=== PATIENT | female | born 1990 | race Caucasian/White ===

== ENCOUNTER 2019-01-25 15:52 | Inpatient (IN) | payer OTHER ==
[2019-01-25 16:32] VITALS: BMI 19.8
--- NOTE | 2019-01-25 17:15 | HP ---
CIWA Score Nausea/Vomitin Muscle Tremors: 2 Anxiety: 2 Agitation: 2 Paroxysmal Sweats: 1-Minimal Palms Moist Orientation: 0-Oriented Tacttile Disturbances: 1-Very Mild Itch/Numbness Auditory Disturbances: 1-Very Mild Visual Disturbances: 0-None Headache: 2-Mild CIWA-Ar Total Score: 13 - Admission Criteria [facility] Guidelines: Admission for Medically Managed Detox: Requires at least one of the followin. CIWA greater than 12 2. Seizures within the past 24 hours 3. Delirium tremens within the past 24 hours 4. Hallucinations within the past 24 hours 5. Acute intervention needed for co occurring medical disorder 6. Acute intervention needed for co occurring psychiatric disorder 7. Severe withdrawal that cannot be handled at a lower level of care (continued vomiting, continued diarrhea, abnormal vital signs) requiring intravenous medication and/or fluids 8. Admission ROS [facility] - HPI Chief Complaint: i need help to stop drinking alcohol Allergies/Adverse Reactions: Allergies Allergy/AdvReac Type Severity Reaction Status Date / Time Penicillins AdvReac Severe Rash Verified 01/25/19 16:12 History of Present Illness: this 28 years old female with alcohol dependence,seeking detox,withdrawal symptom, multiple admissions in detox,last detox albny 01/08 seizure last 11/08 syncope frequent fall longest period of sobriety 3 months anxiety,depression,insomnia Exam Limitations: No Limitations - Ebola screening Have you traveled outside of the country in the last 21 days: No (N) Have you had contact with anyone from an Ebola affected area: No Do you have a fever: No - Review of Systems Constitutional: Loss of Appetite, Night Sweats, Unintentional Wgt. Loss, Unexplained wgt Loss EENT: reports: Nose Congestion Respiratory: reports: No Symptoms reported Cardiac: reports: Palpitations GI: reports: Nausea, Poor Appetite, Abdominal cramping : reports: No Symptoms Reported Musculoskeletal: reports: Back Pain, Muscle Pain Integumentary: reports: Dryness Neuro: reports: Headache, Tremors Endocrine: reports: No Symptoms Reported Hematology: reports: No Symptoms Reported Psychiatric: reports: No Sypmtoms Reported, Judgement Intact, Mood/Affect Appropiate, Orientated x3, Depressed Other Systems: Reviewed and Negative Patient History - Patient Medical History Hx Anemia: No Hx Asthma: No Hx Chronic Obstructive Pulmonary Disease (COPD): No Hx Cancer: No Hx Cardiac Disorders: No Hx Congestive Heart Failure: No Hx Hypertension: No Hx Hypercholesterolemia: No Hx Pacemaker: No HX Cerebrovascular Accident: No Hx Seizures: Yes (on medication,last 11/08) Hx Dementia: No Hx Diabetes: No Hx Gastrointestinal Disorders: No Hx Liver Disease: No Hx Genitourinary Disorders: No Hx Sexually Transmitted Disorders: No Hx Renal Disease (ESRD): No Hx Thyroid Disease: No Hx Human Immunodeficiency Virus (HIV): No (last 05/09 negative) Hx Hepatitis C: No Hx Depression: Yes Hx Suicide Attempt: No Hx Bipolar Disorder: No Hx Schizophrenia: No Other Medical History: no suicidal,no homicidal - Patient Surgical History Other Surgical History: wisdom teeth 2014 - PPD History Documented Results: Negative w/o proof Implanted On Prior [facility] Admission?: No PPD to be Administered?: No - Reproductive History Patient is a Female of Child Bearing Age (11 -55 yrs old): Yes Last Menstrual Period: 01/24/19 Patient : No - Smoking Cessation Smoking history: Never smoked - Substance & Tx. History Hx Alcohol Use: Yes Hx Substance Use: No Substance Use Type: Alcohol Hx Substance Use Treatment: Yes ([facility] in 01/08) - Substances abused Alcohol Substance route: Oral Frequency: Daily Amount used: 20 shots a day, 1.75 shots of vodka a day, Age of first use: 20 Date of last use: 01/25/19 Family Disease History - Family Disease History Family History: Denies Admission Physical Exam BHS - Vital Signs Vital Signs: Vital Signs - 24 hr 01/25/19 16:09 Temperature 97.8 F Pulse Rate 97 H Respiratory 16 Rate Blood Pressure 109/68 - Physical General Appearance: Yes: Moderate Distress, Tremorous, Irritable, Sweating, Anxious HEENTM: Yes: Normal ENT Inspection, TELMA, Pharynx Normal Respiratory: Yes: Lungs Clear, Normal Breath Sounds, No Respiratory Distress Neck: Yes: Within Normal Limits, Supple, Trachea in good position Breast: Yes: Breast Exam Deferred Cardiology: Yes: Within Normal Limits, Regular Rhythm, Regular Rate, S1, S2 Abdominal: Yes: Within Normal Limits, Normal Bowel Sounds, Non Tender, Soft Genitourinary: Yes: Within Normal Limits Back: Yes: Muscle Spasm Musculoskeletal: Yes: Back pain, Muscle Pain Extremities: Yes: Within Normal Limits, Normal Range of Motion, Tremors Neurological: Yes: infrastructure technician II-XII NML intact, Fully Oriented, Alert, Motor Strength 5/5 Integumentary: Yes: Dry Lymphatic: Yes: Within Normal Limits - Diagnostic (1) Alcohol dependence with uncomplicated withdrawal Current Visit: Yes Status: Acute (2) Alcohol dependence with uncomplicated intoxication Current Visit: Yes Status: Acute (3) Syncope Current Visit: Yes Status: Acute (4) Seizure Current Visit: Yes Status: Acute (5) Anxiety and depression Current Visit: Yes Status: Acute (6) Insomnia Current Visit: Yes Status: Acute Cleared for Admission [facility] - Detox or Rehab [facility] Level of Care: Medically Managed Detox Regimen/Protocol: Valium Breathalyzer - Breathalyzer Breathalyzer: 0.234 Urine Drug Screen - Test Device Lot number: [id number] Expiration date: 11/19/20 - Control Is test valid?: Yes - Results Drug screen NEGATIVE: No Urine drug screen results: BZO-Benzodiazepines Inpatient Rehab Admission - Rehab Decision to Admit Inpatient rehab admission?: No
[2019-01-25] MEDS ORDERED: MAGNESIUM CITRATE 300 ML BOTTLE PO PRN (17:25)
[2019-01-25] MEDS ORDERED: IBUPROFEN 400 MG TABLET (FP) PO PRN (17:25)
[2019-01-25] MEDS ORDERED: MAG HYDROX/AL HYDROX/SIMETH 30 ML UNIT-DOSE CUP PO PRN (17:25)
[2019-01-25] MEDS ORDERED: MAGNESIUM HYDROX 2400MG/30ML ORAL SUSPENSION 30 ML CUP PO PRN (17:25)
[2019-01-25] MEDS ORDERED: ACETAMINOPHEN 325 MG TABLET (FP) PO PRN (17:25)
[2019-01-25] MEDS ORDERED: BISMUTH SUBSALICYLATE 524 MG/30 ML UD PO PRN (17:25)
[2019-01-25] MEDS ORDERED: MENTHOL/PHENOL 1 EACH UD MM PRN (17:25)
[2019-01-25] MEDS: diazePAM 5 MG TABLET PO PRN ×2 (18:59→23:37)
[2019-01-25] MEDS: hydrOXYzine PAMOATE 25 MG CAPSULE (FP) PO PRN (20:48)
[2019-01-25] MEDS ORDERED: THIAMINE HCL 100 MG TABLET (FP) PO SCH (22:00)
[2019-01-25] MEDS ORDERED: MELATONIN 5 MG TABLETS PO PRN (22:00)
[2019-01-25] MEDS: diazePAM 5 MG TABLET PO SCH (22:33)
[2019-01-25] MEDS ORDERED: levETIRAcetam 500 MG TABLET (FP) PO ONE (22:46)
--- NOTE | 2019-01-25 22:51 | PN ---
[facility] Progress Note Note: Patient reports history of seizure and states that she has not taken her seizure medication today. She states that is on Keppra 500mg tablet oral BID. Vital Signs Temperature 97.8 F 01/25/19 21:47 Pulse Rate 91 H 01/25/19 22:00 Respiratory Rate 18 01/25/19 22:00 Blood Pressure 101/71 01/25/19 21:48 O2 Sat by Pulse Oximetry (%) Action: Levetiracetam 500mg tablet oral stat ordered Levetiracetam level (lab) ordered
[2019-01-26] MEDS ORDERED: ASPIRIN 81 MG CHEWABLE TABLETS PO ONE (01:18)
--- NOTE | 2019-01-26 01:18 | PN ---
[facility] Progress Note Note: Patient with complaint of chest pain was seen and examined at bedside. Patient states that she has had her chest pain since yesterday on admission. She is in no acute distress at this time Vital Signs Temperature 98.3 F 01/26/19 01:02 Pulse Rate 80 01/26/19 01:02 Respiratory Rate 17 01/26/19 01:02 Blood Pressure 98/70 01/26/19 01:02 O2 Sat by Pulse Oximetry (%) Action: EKG stat ordered Aspirin 81mg 1 tablet oral stat ordered
[2019-01-26] MEDS: hydrOXYzine PAMOATE 25 MG CAPSULE (FP) PO PRN (02:29)
[2019-01-26] MEDS: ACETAMINOPHEN 325 MG TABLET (FP) PO PRN ×2 (02:29→14:19)
[2019-01-26] MEDS: METHOCARBAMOL 500 MG TABLET PO PRN ×2 (02:29→10:46)
[2019-01-26] MEDS: diazePAM 5 MG TABLET PO SCH ×2 (06:02→14:21)
--- NOTE | 2019-01-26 09:53 | CONSULT ---
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 This is patient's first admission to detox at [facility]. Patient admitted to for alcohol dependence. Substance Abuse History: - Substance & Tx. History. Hx Alcohol Use: Yes. Hx Substance Use: No. Substance Use Type: Alcohol. Hx Substance Use Treatment: Yes ([facility] 01[facility]08). - Substances abused. Alcohol. Substance route: Oral. Frequency: Daily. Amount used: 20 shots a day, 1.75 shots of vodka a day ,. Age of first use: 20. Date of last use: 01/25/19 Medical History: Seizures Psychiatric History: Patient denies h/o psychiatric hospitalization and outpatient care. All psychiatric contact have occured while in detox/rehab settings. Patient reports seeing a psychologist in 2013 to help her cope with her history of anxiety. In 2013 her primary care physician prescribed her celexa for anxiety. Then in 2014 patient admitted herself to [facility] for alcohol dependence and had her first psychiatric contact. She was prescribed lexapro , gabapentin, clonoidine, and vistaril. Celexa was discontinued. Ms. Nagy was discharged from the detox unit at [facility] in [place] and reports taking lexapro 10mg + trazodone 50mg HS + vistaril + clonodine + keppra. At present, patient reports mild anxiety and difficulty sleeping. Physical/Sexual Abuse/Trauma History: denies. Mental Status Exam - Mental Status Exam Alert and Oriented to: Time, Place, Person Cognitive Function: Good Patient Appearance: Well Groomed Mood: Euthymic Affect: Appropriate Patient Behavior: Cooperative Speech Pattern: Appropriate Voice Loudness: Normal Thought Process: Intact, Goal Oriented Thought Disorder: Not Present Hallucinations: Denies Suicidal Ideation: Denies Homicidal Ideation: Denies Insight/Judgement: Poor Sleep: Poorly Appetite: Fair Muscle strength/Tone: Normal Gait/Station: Normal Psychiatric Findings - Problem List ([place] 1, 2,3) (1) Alcohol-induced anxiety disorder Current Visit: Yes Status: Acute (2) Alcohol dependence with uncomplicated withdrawal Current Visit: Yes Status: Acute (3) Alcohol-induced sleep disorder Current Visit: Yes Status: Acute - Initial Treatment Plan Initial Treatment Plan: Psychoeducation provided. Detoxification in progress. Will order Topamax 50mg BID. Will d/c melatonin 5mg and order 10mg HS prn. Will hold lexapro and trazodone due to Prolong QT. Patient was also complaining of chest pain this morning and was treated with a one time dose of aspiring.
--- NOTE | 2019-01-26 09:54 | PN ---
S CIWA - CIWA Score Nausea/Vomitin-No Nausea/No Vomiting Muscle Tremors: 2 Anxiety: 2 Agitation: 2 Paroxysmal Sweats: 1-Minimal Palms Moist Orientation: 0-Oriented Tacttile Disturbances: 1-Very Mild Itch/Numbness Auditory Disturbances: 0-None Visual Disturbances: 0-None Headache: 1-Very Mild CIWA-Ar Total Score: 9 [facility] Progress Note (SOAP) Subjective: denies chest pain denies "signs of seizure" feeling fine with valium detox protocol ambulating on hallway social with peers in day room Objective: 01/26/19 09:55 Vital Signs Temperature 98.5 F 01/26/19 09:35 Pulse Rate 86 01/26/19 09:35 Respiratory Rate 18 01/26/19 09:35 Blood Pressure 109/84 01/26/19 09:35 O2 Sat by Pulse Oximetry (%) 01/26/19 09:55 lab pending Assessment: 01/26/19 09:56 alcohol withdrawal sx Plan: continue alcohol detox
[2019-01-26] MEDS ORDERED: PRENATAL VITAMINS W/ FOLIC ACID TABLET (FP) PO SCH (10:00)
[2019-01-26] MEDS: diazePAM 5 MG TABLET PO PRN ×2 (10:37→16:56)
[2019-01-26] MEDS ORDERED: levETIRAcetam 500 MG TABLET (FP) PO SCH (10:45)
[2019-01-26 10:58] LABS: ALBUMIN 3.8 g/dl (3.4-5.0); BLOOD UREA NITROGEN 13.3 mg/dL (7-18); CALCIUM 8.4 mg/dL (8.5-10.1); CREATININE 0.6 mg/dL (0.55-1.3); POTASSIUM 3.3 mmol/L (3.5-5.1)
[2019-01-26] MEDS ORDERED: TOPIRAMATE 25 MG TABLET (FP) PO SCH (11:00)
[2019-01-26 11:24] LABS: HEMOGLOBIN 10.8 GM/dL (10.7-15.3)
[2019-01-26 11:57] LABS: HEMATOCRIT 32.2 % (32.4-45.2); MCH 30.9 pg (25.7-33.7); MCHC 33.4 g/dl (32.0-36.0); MEAN CELL VOLUME 92.5 fl (80-96); MEAN PLT VOLUME 7.7 fl (7.5-11.1); RBC 3.48 M/mm3 (3.60-5.2)
[2019-01-26 11:58] LABS: PLATELET COUNT 203 K/MM3 (134-434)
--- NOTE | 2019-01-26 13:57 | EKG ---
Test Reason : Blood Pressure : / mmHG Vent. Rate : 079 BPM Atrial Rate : 079 BPM P-R Int : 178 ms QRS Dur : 090 ms QT Int : 420 ms P-R-T Axes : 056 063 040 degrees QTc Int : 481 ms NORMAL SINUS RHYTHM PROLONGED QT NONSPECIFIC ST ABNORMALITY ABNORMAL ECG WHEN COMPARED WITH ECG OF 25-JAN-2019 17:37, NO SIGNIFICANT CHANGE WAS FOUND Confirmed by MD ARACELY, BOBBI ([id number]) on 01/26/2019 1:57:33 PM Referred By: Confirmed By:BOBBI JESSICA MD
--- NOTE | 2019-01-26 13:59 | EKG ---
Test Reason : Blood Pressure : / mmHG Vent. Rate : 081 BPM Atrial Rate : 081 BPM P-R Int : 168 ms QRS Dur : 094 ms QT Int : 396 ms P-R-T Axes : 065 062 026 degrees QTc Int : 460 ms NORMAL SINUS RHYTHM NORMAL ECG NO PREVIOUS ECGS AVAILABLE Confirmed by MD ARACELY, BOBBI ([id number]) on 01/26/2019 1:59:03 PM Referred By: KAROL CROW Confirmed By:BOBBI JESSICA MD
[2019-01-26 17:35] VITALS: BP 103/77; PULSE 86; TEMP 99.5
--- NOTE | 2019-01-26 17:44 | PN ---
[facility] Progress Note Note: patient did not want to complete treatment,stated she would like to go to the facility near her home,high risk of relapsing explained,patient understood, patient signed release AMA,advise to call 911 if not feeling well
--- NOTE | 2019-01-26 18:46 | DS ---
[facility] Detox Discharge Summary Admission Date: 01/25/19 Discharge Date: 01/26/19 - History Present History: Alcohol Dependence Additional Comments: patient signed release AMA Pertinent Past History: seizure syncope anxiety,depression,insomnia - Physical Exam Results Vital Signs: Vital Signs Temperature 99.5 F 01/26/19 17:35 Pulse Rate 86 01/26/19 17:35 Respiratory Rate 18 01/26/19 17:35 Blood Pressure 103/77 01/26/19 17:35 O2 Sat by Pulse Oximetry (%) Pertinent Admission Physical Exam Findings: withdrawal signs and symptom Vital Signs Temperature 99.5 F 01/26/19 17:35 Pulse Rate 86 01/26/19 17:35 Respiratory Rate 18 01/26/19 17:35 Blood Pressure 103/77 01/26/19 17:35 O2 Sat by Pulse Oximetry (%) Laboratory Last Values WBC 3.0 K/mm3 (4.0-10.0) L 01/26/19 07:42 RBC 3.48 M/mm3 (3.60-5.2) L 01/26/19 07:42 Hgb 10.8 GM/dL (10.7-15.3) 01/26/19 07:42 Hct 32.2 % (32.4-45.2) L 01/26/19 07:42 MCV 92.5 fl (80-96) 01/26/19 07:42 MCH 30.9 pg (25.7-33.7) 01/26/19 07:42 MCHC 33.4 g/dl (32.0-36.0) 01/26/19 07:42 RDW 19.0 % (11.6-15.6) H 01/26/19 07:42 Plt Count 203 K/MM3 (134-434) 01/26/19 07:42 MPV 7.7 fl (7.5-11.1) 01/26/19 07:42 Sodium 141 mmol/L (136-145) 01/26/19 07:42 Potassium 3.3 mmol/L (3.5-5.1) L 01/26/19 07:42 Chloride 104 mmol/L (98-107) 01/26/19 07:42 Carbon Dioxide 29 mmol/L (21-32) 01/26/19 07:42 Anion Gap 8 MMOL/L (8-16) 01/26/19 07:42 BUN 13.3 mg/dL (7-18) 01/26/19 07:42 Creatinine 0.6 mg/dL (0.55-1.3) 01/26/19 07:42 Est GFR (CKD-EPI)AfAm 141.76 01/26/19 07:42 Est GFR (CKD-EPI)NonAf 122.31 01/26/19 07:42 Random Glucose 89 mg/dL (74-106) 01/26/19 07:42 Calcium 8.4 mg/dL (8.5-10.1) L 01/26/19 07:42 Total Bilirubin 1.0 mg/dL (0.2-1) 01/26/19 07:42 AST 127 U/L (15-37) H 01/26/19 07:42 ALT 153 U/L (13-61) H 01/26/19 07:42 Alkaline Phosphatase 52 U/L (45-117) 01/26/19 07:42 Total Protein 6.0 g/dl (6.4-8.2) L 01/26/19 07:42 Albumin 3.8 g/dl (3.4-5.0) 01/26/19 07:42 POC Urine HCG, Qual Negative 01/25/19 16:51 RPR Titer Nonreactive (NONREACTIVE) 01/26/19 07:42 - Medication Discharge Medications: Ambulatory Orders Clonidine HCl 0.1 mg PO DAILY 01/25/19 Escitalopram Oxalate [Lexapro -] 10 mg PO DAILY 01/25/19 Gabapentin [Neurontin] 300 mg PO TID 01/25/19 Hydroxyzine HCl 100 mg PO HS 01/25/19 Topiramate 50 mg PO BID 01/25/19 traZODone HCL [Trazodone HCl] 50 mg PO HS 01/25/19 - Diagnosis (1) Alcohol dependence with uncomplicated withdrawal Status: Acute (2) Alcohol dependence with uncomplicated intoxication Status: Acute (3) Syncope Status: Acute (4) Seizure Status: Acute (5) Anxiety and depression Status: Acute (6) Insomnia Status: Acute - AMA Did Patient Leave Against Medical Advice: Yes
[2019-01-26] MEDS ORDERED: MELATONIN 5 MG TABLETS PO PRN (22:00)
[2019-01-27] MEDS ORDERED: diazePAM 5 MG TABLET PO SCH (06:00)
[2019-01-28] MEDS ORDERED: diazePAM 5 MG TABLET PO ONE (06:00)
== END 2019-01-26 17:50 | disposition left against medical advice (07) | DRG 770 ==
LOC: YASAS 15:52 → Y3N 17:27
PROVIDERS: ADMIT Surgery; ATTEND Surgery
PROC: HZ2ZZZZ Detoxification Services for Substance Abuse Treatment (ICD-10-PCS; principal; 2019-01-25)
DX: F10.230 Alcohol dependence with withdrawal, uncomplicated (principal); F10.280 Alcohol dependence with alcohol-induced anxiety disorder; F10.282 Alcohol dependence with alcohol-induced sleep disorder; F41.8 Other specified anxiety disorders; F32.9 Major depressive disorder, single episode, unspecified; G47.00 Insomnia, unspecified; G40.909 Epilepsy, unspecified, not intractable, without status epilepticus; R55 Syncope and collapse; R07.9 Chest pain, unspecified; R29.6 Repeated falls
CPT/HCPCS: 36415; 80053; 80177; 81025; 85027; 86593; 93005; 93010